=== PATIENT | male | born 1990 | race American Indian/Alaskan Native ===

== ENCOUNTER 2020-07-21 08:08 | Emergency (ER) | payer SELFPAY ==
[2020-07-21 08:47] LABS: Bilirubin,Urine NEG (Negative); Blood,Urine NEG (Negative); Color,Urine Yellow (Yellow); Mucus,Urine FEW /HPF
[2020-07-21 08:48] LABS: Amphetamine Screen,Urine Negative; Benzodiazepines Screen,Urine Negative; Cannabinoid Screen,Urine Negative; Cocaine Screen,Urine Negative; Methadone Screen,Urine Negative; Opiate Screen,Urine Negative
[2020-07-21 08:57] LABS: Basophils % (Auto) 0.3 % (0.0-1.8); Eosinophils # (Auto) 0.1 K/mm3 (0.0-0.4); Eosinophils % (Auto) 0.8 % (0.0-4.3); Hematocrit 46.1 % (35.5-45.6); Hemoglobin 15.6 gm/dl (11.8-15.2); Lymphocytes % (Auto) 9.2 % (13.4-35.0); Mean Corpuscular HGB Conc 34 % (32-34); Mean Corpuscular Volume 89 fl (84-94); Monocytes # (Auto) 0.8 K/mm3 (0.0-0.8); Monocytes % (Auto) 7.1 % (0.0-7.3); Platelet Count 212 K/mm3 (140-440); Red Blood Count 5.21 M/mm3 (3.65-5.03); Red Cell Distribution Width 13.3 % (13.2-15.2)
[2020-07-21 09:16] LABS: BUN/Creatinine Ratio 16; Blood Urea Nitrogen 14 mg/dL (9-20); Calcium 9.7 mg/dL (8.4-10.2); Hemolysis Index 13
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
[2020-07-22] MEDS ORDERED: ZIPRASIDONE MESYLATE 20 MG VIAL IM ONE ×2 (01:34→01:36)
--- NOTE | 2020-07-22 12:44 | Consultation ---
History of Present Illness - Reason for Consult Consult date: 07/22/20 Reason for consult: hallucinations - History of Present Psychiatric Illness The patient's medical record was reviewed and the patient's progress was discussed with the nursing staff. The nurse note states the patient was starting to get agitated and talking to himself. Tania ALFARO was given. Natalio Pappas is a 30y/o male patient who was brought to the hospital for auditory hallucinations. During my interview with the patient he is sitting on side of the cot. He is heard talking to himself and laughing out loud as I am walking up. He is a poor historian, and unable to provide a lot of insight into his history or what's presently going on with him. The patient's thoughts are disorganized, he is responding to internal stimuli. He is rambling. He is moving his upper body up and down in a bizarre way as he is speaking. He is difficult to follow. The patient states "people have been playing with me out there in society," when asking why was he brought to the hospital. He says, "I'm tired of my brother running off with my life. I'm tired of these people playing me." The patient denies hallucinations of any kind, but he's obviously hallucinating. He denies SI. When asked about HI, the patient states, "they need to stop playing with me." The patient does not answer directly when asked about any drug use. He continues to rant about society and his brother. As I'm leaving the interview, the patient is observed turning toward the wall, talking and laughing out loud. PAST PSYCHIATRIC HISTORY Unable to provide. PAST MEDICAL HISTORY: Denies Family Psychiatric History: None reported or documented SOCIAL HISTORY Marital Status: Single Living Arrangements: with friends Employment Status: Unemployed Access to guns/weapons: Denies Education: high school diploma History of Abuse: none reported Legal History: none reported REVIEW OF SYSTEMS Constitutional: Negative for weight loss ENT: Negative for stridor Respiratory: Negative for cough or hemoptysis All other systems reviewed and are negative MENTAL STATUS EXAMINATION General Appearance: Dressed appropriately Behavior: bizarre, disorganized, laughs inappropriately Mood: irritable Affect and affective range: incongruent with stated mood, laughs inappropriately Thought Process: responding to internal stimuli, disorganized Thought Content: hallucinations Speech: rambling Suicidal Ideation: Denies Homicidal Ideation: Possibly passive Hallucinations: A/V Delusions: None elicited Insight and Judgment: Limited Memory/Cognition: Limited Attention: Normal Orientation: Alert, oriented Assessment Schizoaffective Disorder PLAN Start Risperidone 0.5mg po BID Start Trazodone 50mg po qhs Start Depakote DR 125mg po BID Start Vistaril 25mg po BID Start Geodon 20mg IM q6h prn agitaion Sitter: Defer to primary Medical: Per primary Disposition: Recommend acute inpatient psychiatric treatment Will continue to follow. Thank you for this consult. Medications and Allergies Allergies Allergy/AdvReac Type Severity Reaction Status Date / Time No Known Allergies Allergy Verified 07/22/20 01:35 Mental Status Exam - Vital signs Last Vital Signs Temp 97.9 F 07/22/20 02:00 Pulse 55 L 07/22/20 10:21 Resp 19 07/22/20 10:21 BP 115/70 07/22/20 10:21 Pulse Ox 100 07/22/20 10:21 Results Result Diagrams: 07/21/20 08:43 07/21/20 08:43 All other labs normal.
[2020-07-22] MEDS ORDERED: ZIPRASIDONE MESYLATE 20 MG VIAL IM PRN (14:00)
[2020-07-22] MEDS: risperiDONE 0.25 MG TAB PO SCH (15:18)
[2020-07-22] MEDS: DIVALPROEX DR 125 MG TAB PO SCH (15:19)
[2020-07-22] MEDS: hydrOXYzine PAMOATE 25 MG CAP PO SCH (15:19)
[2020-07-22 19:39] LABS: Basophils % (Auto) 0.5 % (0.0-1.8); Eosinophils # (Auto) 0.3 K/mm3 (0.0-0.4); Eosinophils % (Auto) 4.5 % (0.0-4.3); Hematocrit 45.1 % (35.5-45.6); Lymphocytes # (Auto) 1.6 K/mm3 (1.2-5.4); Lymphocytes % (Auto) 22.6 % (13.4-35.0); Mean Corpuscular HGB Conc 33 % (32-34); Mean Corpuscular Volume 89 fl (84-94); Monocytes # (Auto) 0.6 K/mm3 (0.0-0.8); Monocytes % (Auto) 8.8 % (0.0-7.3); Platelet Count 189 K/mm3 (140-440); Red Blood Count 5.09 M/mm3 (3.65-5.03); Red Cell Distribution Width 13.5 % (13.2-15.2)
[2020-07-23] MEDS: DIVALPROEX DR 125 MG TAB PO SCH ×2 (02:26→11:48)
[2020-07-23] MEDS: traZODone 50 MG TAB PO SCH ×2 (02:26→22:10)
[2020-07-23] MEDS: hydrOXYzine PAMOATE 25 MG CAP PO SCH ×3 (02:27→22:10)
[2020-07-23] MEDS: risperiDONE 0.25 MG TAB PO SCH ×2 (02:27→11:48)
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
[2020-07-23] MEDS ORDERED: DIVALPROEX DR 125 MG TAB PO SCH (10:55)
[2020-07-23] MEDS: DIVALPROEX DR 500 MG TAB PO SCH ×2 (12:11→22:10)
[2020-07-23] MEDS: HALOPERIDOL 5 MG TAB PO SCH ×2 (12:16→22:10)
[2020-07-23] MEDS ORDERED: HALOPERIDOL 2 MG TAB PO SCH (22:00)
--- NOTE | 2020-07-24 08:15 | Progress Note ---
Subjective - Reason for Consult Consult date: 07/24/20 Reason for consult: MHE Requesting physician: KEYLA AGUAYO - Chief Complaint Chief complaint: PSYCH HPI Patient seen this AM, resting, says he would like to make a call to get out of here and when I see him in a couple of years, he would be a bigger person and I would be like "wow". Patient says fortune lies for him in [place] and his grandma told him to come back, says he knows a place to get a bus for $40, pt reports he knows he has been hanging out with the wrong people and wants to change his way of life, then pt again started talking about money, says he likes food alot and can eat all day. Pt endorses sleeping and has been medication complaint. REVIEW OF SYSTEMS Constitutional: Negative for weight loss ENT: Negative for stridor Respiratory: Negative for cough or hemoptysis All other systems reviewed and are negative MENTAL STATUS EXAMINATION General Appearance and Behavior: Age appropriate,fair hygiene, wearing appropriate clothes, lying in bed, good eye contact, cooperative polite with questioning. Cooperation: Participating/engaged Psychomotor Behavior: unremarkable and within normal limits Mood: euphoric Affect and affective range: euphoric Thought Process: Fluent/Logical, Thought Content: light of ideas, Illogical, Grandiose, , Ideas of reference, Hallucinations Speech: Normal volume, Regular rate and rhythm Intellectual Functioning: Average Suicidal Ideation: Denies SI Homicidal Ideation: Denies HI Impulse Control: Impaired Insight and Judgment: Impaired Memory: Prospective memory impaired Attention: Divided attention impaired Orientation: Alert, oriented Diagnoses: Assessment and Plan - Patient Problems (1) Schizoaffective disorder Current Visit: Yes Status: Acute Treatment Plan MEDICATIONS: Risks, benefits and alternatives of medications discussed with the patient, questions answered and consent obtained from patient. PSYCHOTHERAPY: Supportive psychotherapy provided MEDICAL: Per primary team DELIRIUM PRECAUTIONS: Please re-orient patient frequently, keep lights on during the day, and minimize benzodiazepines and opiates as these medications could worsen patient's confusion. HEALTH COMPANION: DISPOSITION: Do Recommend acute inpatient psychiatric hospitalization at this time LEGAL STATUS: 1013 FOLLOW-UP: Will follow Thank you for the consult. Please contact with any questions and/or concerns. Mental Status Exam - Vital signs Last Vital Signs Temp 98 F 07/23/20 21:00 Pulse 62 07/23/20 21:00 Resp 18 07/23/20 21:00 BP 120/62 07/23/20 21:00 Pulse Ox 100 07/23/20 21:00 Assessment and Plan - Patient Problems (1) Schizoaffective disorder Status: Acute
[2020-07-24] MEDS: hydrOXYzine PAMOATE 25 MG CAP PO SCH ×2 (11:14→22:12)
[2020-07-24] MEDS: HALOPERIDOL 5 MG TAB PO SCH ×2 (11:14→22:12)
[2020-07-24] MEDS: DIVALPROEX DR 500 MG TAB PO SCH ×2 (11:15→22:12)
[2020-07-24] MEDS: traZODone 50 MG TAB PO SCH (22:12)
[2020-07-25 08:10] VITALS: BP 123/57
--- NOTE | 2020-07-25 09:42 | Progress Note ---
Subjective - Reason for Consult Consult date: 07/25/20 Reason for consult: MHE Requesting physician: KEYLA AGUAYO - Chief Complaint Chief complaint: PSYCH HPI Patient seen this AM, reports feeling much better, says his happy to see me this AM and his thankful for the care he has been recieved, he feels his thoughts are more clear and when out he would want to go back home to [place] and build his life. Patient denies SI, HI, thought disorder, denies activity interested and also denies hallucinations. REVIEW OF SYSTEMS Constitutional: Negative for weight loss ENT: Negative for stridor Respiratory: Negative for cough or hemoptysis All other systems reviewed and are negative MENTAL STATUS EXAMINATION General Appearance and Behavior: Age appropriate, good hygiene, wearing appropriate clothes, lying in bed, good eye contact, cooperative polite with questioning. Cooperation: Participating/engaged Psychomotor Behavior: unremarkable and within normal limits Mood: euphoric Affect and affective range: euphoric Thought Process: Fluent/Logical, Thought Content: Logical Speech: Normal volume, Regular rate and rhythm Intellectual Functioning: Average Suicidal Ideation: Denies SI Homicidal Ideation: Denies HI Impulse Control: unImpaired Insight and Judgment: Improved Memory: Good Attention: normal Orientation: Alert, oriented Diagnoses: Assessment and Plan - Patient Problems (1) Schizoaffective disorder Current Visit: Yes Status: Acute Treatment Plan MEDICATIONS: Risks, benefits and alternatives of medications discussed with the patient, questions answered and consent obtained from patient. PSYCHOTHERAPY: Supportive psychotherapy provided MEDICAL: Per primary team DELIRIUM PRECAUTIONS: Please re-orient patient frequently, keep lights on during the day, and minimize benzodiazepines and opiates as these medications could worsen patient's confusion. AWS DEVELOPER: DISPOSITION: Do not Recommend acute inpatient psychiatric hospitalization at this time LEGAL STATUS: 1013 rescinded FOLLOW-UP: Will sign off with home medications Thank you for the consult. Please contact with any questions and/or concerns. Mental Status Exam - Vital signs Last Vital Signs Temp 98.2 F 07/25/20 08:09 Pulse 58 L 07/25/20 08:09 Resp 18 07/25/20 08:09 BP 123/57 07/25/20 08:09 Pulse Ox 99 07/25/20 08:09 Assessment and Plan - Patient Problems (1) Schizoaffective disorder Status: Acute
[2020-07-25] MEDS: hydrOXYzine PAMOATE 25 MG CAP PO SCH (10:07)
[2020-07-25] MEDS: HALOPERIDOL 5 MG TAB PO SCH (10:07)
[2020-07-25] MEDS: DIVALPROEX DR 500 MG TAB PO SCH (10:07)
== END 2020-07-25 11:07 | disposition home or self-care (01) ==
LOC: ED 08:08 → EEVIPCON 08:08 → ED 07-25 11:07
DX: R44.0 Auditory hallucinations (principal); F17.200 Nicotine dependence, unspecified, uncomplicated; F12.90 Cannabis use, unspecified, uncomplicated
CPT/HCPCS: 36415; 80048; 80307; 81001; 85025; 96372; 99284; J3486; Q0177; 80320; G0480